=== PATIENT | male | born 1985 | race Caucasian/White ===

== ENCOUNTER 2020-04-20 10:23 | Emergency (ER) | payer SELFPAY ==
[~2020-04-20] VITALS: Ht 175.3 cm; Wt 81.6 kg
[2020-04-20 10:25] VITALS: BP 145/105
--- NOTE | 2020-04-20 10:34 | NUR ---
SEEN AND EXAMINED BY .
[2020-04-20 10:56] LABS: BASOPHILS # (AUTO) 0.1 /CMM (0.0-0.2); BASOPHILS % (AUTO) 1.2 % (0.0-2.0); EOSINOPHILS % (AUTO) 2.5 % (0.0-6.0); HEMATOCRIT 43 % (39-51); HEMOGLOBIN 14.2 g/dL (13.5-17.5); LYMPHOCYTES # (AUTO) 1.5 /CMM (0.8-4.8); LYMPHOCYTES % (AUTO) 19.1 % (20.0-44.0); MEAN CORPUSCULAR HGB CONC 33 g/dl (31.0-36.0); MEAN CORPUSCULAR VOLUME 97 fL (80-96); MONOCYTES # (AUTO) 0.6 /CMM (0.1-1.30); NEUTROPHILS # (AUTO) 5.4 /CMM (1.8-8.9); NEUTROPHILS % (AUTO) 69.2 % (43.0-81.0); PLATELET COUNT (AUTO) 195 /CMM (150-450); RED BLOOD CELL COUNT(AUTO) 4.41 MIL/uL (4.5-6.0); WHITE BLOOD COUNT (AUTO) 7.8 K/uL (4.3-11.0)
[2020-04-20 11:02] LABS: CALCIUM, SERUM 6.3 mg/dL (8.5-10.1); CREATININE 0.9 mg/dL (0.6-1.3)
[2020-04-20 11:08] LABS: ALBUMIN 3.2 g/dL (3.4-5.0); BILIRUBIN,DIRECT 0.1 mg/dL (0.0-0.2); BILIRUBIN,TOTAL 0.3 mg/dL (0.2-1.0); TOTAL PROTEIN, SERUM 6.8 g/dL (6.4-8.2)
--- NOTE | 2020-04-20 11:55 | NUR ---
Patient given written and verbal discharge instructions. Patient verbalizes understanding of instructions. Patient is ambulatory with steady gait. Refuses offer of group home placement. Patient given list of available shelters in surrounding area.
== END 2020-04-20 12:00 | disposition home or self-care (01) ==
LOC: ER 10:26
DX: R10.13 Epigastric pain (principal); R11.0 Nausea; G40.909 Epilepsy, unspecified, not intractable, without status epilepticus; F17.200 Nicotine dependence, unspecified, uncomplicated; Z59.0 Homelessness
CPT/HCPCS: 36415; 80048-TC; 80076-TC; 83690-TC; 85025-TC

== ENCOUNTER 2021-03-30 20:29 | Inpatient (IN) | payer MEDICAID ==
[~2021-03-30] VITALS: Ht 175.3 cm; Wt 68.5 kg
--- NOTE | 2021-03-30 20:55 | NUR ---
PT BIBRA FROM URGENT CARE C/O LOW CALCIUM OF 3.2 GIVEN 1G OF CALCIUM IV BY [facility] THEN SENT TO [facility]. C/O WEAKNESS PT ALERT AND ORIENTED X3. AMBULATORY WITH NON LABORED BREATHING.
[2021-03-30] MEDS ORDERED: IV NS 0.9% 1,000 ML BAG IV ONE (21:00)
[2021-03-30 21:17] LABS: BASOPHILS # (AUTO) 0.1 K/uL (0.0-0.2); BASOPHILS % (AUTO) 1.4 % (0.0-2.0); EOSINOPHILS % (AUTO) 5.8 % (0.0-6.0); HEMATOCRIT 37 % (39-51); HEMOGLOBIN 12.4 g/dL (13.5-17.5); LYMPHOCYTES # (AUTO) 1.8 K/uL (0.8-4.8); LYMPHOCYTES % (AUTO) 28.4 % (20.0-44.0); MEAN CORPUSCULAR HGB CONC 34 g/dl (31.0-36.0); MEAN CORPUSCULAR VOLUME 97 fL (80-96); MONOCYTES # (AUTO) 0.7 K/uL (0.1-1.30); MONOCYTES % (AUTO) 11.2 % (2.0-12.0); NEUTROPHILS # (AUTO) 3.4 K/uL (1.8-8.9); NEUTROPHILS % (AUTO) 53.2 % (43.0-81.0); PLATELET COUNT (AUTO) 139 K/uL (150-450); WHITE BLOOD COUNT (AUTO) 6.3 K/uL (4.3-11.0)
--- NOTE | 2021-03-30 21:20 | NUR ---
URINE COLLECTED AND SENT TO LAB
[2021-03-30 21:59] LABS: POTASSIUM 3.9 mmol/L (3.5-5.1)
--- NOTE | 2021-03-30 22:02 | NUR ---
CALCIUM 6.0
[2021-03-30 22:08] LABS: ALBUMIN 3.3 g/dL (3.4-5.0); BILIRUBIN,DIRECT 0.1 mg/dL (0.0-0.2); BILIRUBIN,TOTAL 0.1 mg/dL (0.2-1.0); TOTAL PROTEIN, SERUM 6.2 g/dL (6.4-8.2)
--- NOTE | 2021-03-30 22:56 | NUR ---
COVID SWAB DONE AND SENT TO LAB.
[2021-03-31] MEDS ORDERED: ONDANSETRON HCL/PF 4 MG/2 ML VIAL IVP PRN
[2021-03-31] MEDS ORDERED: MAGNESIUM HYDROXIDE 30 ML UDC PO PRN
[2021-03-31] MEDS ORDERED: IV D5/0.45 NACL 1,000 ML IV PRN
[2021-03-31] MEDS ORDERED: ACETAMINOPHEN 325 MG TABLET PO PRN
[2021-03-31] MEDS ORDERED: MAG HYDROX/AL HYDROX/SIMETH 30 ML UDC PO PRN
[2021-03-31] MEDS ORDERED: Z GUARD REMEDY 2 OZ OINT TP PRN
--- NOTE | 2021-03-31 03:49 | NUR ---
pt resting comfortably no complaints at this time
[2021-03-31] MEDS: IV D5/0.45 NACL 1,000 ML IV PRN ×2 (04:03→09:24)
[2021-03-31 05:58] LABS: BASOPHILS # (AUTO) 0.1 K/uL (0.0-0.2); BASOPHILS % (AUTO) 1.3 % (0.0-2.0); EOSINOPHILS % (AUTO) 5.3 % (0.0-6.0); HEMATOCRIT 39 % (39-51); HEMOGLOBIN 13.1 g/dL (13.5-17.5); LYMPHOCYTES # (AUTO) 1.7 K/uL (0.8-4.8); LYMPHOCYTES % (AUTO) 29.8 % (20.0-44.0); MEAN CORPUSCULAR HGB CONC 33 g/dl (31.0-36.0); MEAN CORPUSCULAR VOLUME 98 fL (80-96); MONOCYTES # (AUTO) 0.7 K/uL (0.1-1.30); MONOCYTES % (AUTO) 12.7 % (2.0-12.0); NEUTROPHILS # (AUTO) 2.9 K/uL (1.8-8.9); NEUTROPHILS % (AUTO) 50.9 % (43.0-81.0); PLATELET COUNT (AUTO) 143 K/uL (150-450); RED BLOOD CELL COUNT(AUTO) 4.01 MIL/uL (4.5-6.0); WHITE BLOOD COUNT (AUTO) 5.7 K/uL (4.3-11.0)
[2021-03-31 06:14] LABS: ALBUMIN 2.9 g/dL (3.4-5.0); BILIRUBIN,TOTAL 0.2 mg/dL (0.2-1.0); CREATININE 0.9 mg/dL (0.6-1.3); MAGNESIUM 1.8 mg/dL (1.8-2.4); PHOSPHORUS 5.3 mg/dL (2.5-4.9); POTASSIUM 4.2 mmol/L (3.5-5.1); TOTAL PROTEIN, SERUM 5.8 g/dL (6.4-8.2)
[2021-03-31 06:21] LABS: CALCIUM, SERUM 5.5 mg/dL (8.5-10.1)
[2021-03-31 06:25] LABS: THYROID STIMULATING HORMONE 1.769 uIU/mL (0.358-3.74)
--- NOTE | 2021-03-31 08:05 | NUR ---
THE PATIENT IS HAVING BREAKFAST. TOLERATES PROVIDED FOOD WELL.
--- NOTE | 2021-03-31 08:34 | NUR ---
THE PATIENT IS RECEIVED IN BED # 15. THE PATIENT IS SLEEPING. RESPONSIVE TO VERBAL STIMULI. RESPIRATION REGULAR AND UNLABORED. WILL CONTINUE TO MONITOR THE PATIENT.
[2021-03-31] MEDS ORDERED: DIVALPROEX SODIUM 250 MG TABLET.DR PO SCH (09:00)
[2021-03-31] MEDS ORDERED: PANTOPRAZOLE 40 MG VIAL ONE (09:14)
[2021-03-31] MEDS ORDERED: DIVALPROEX SODIUM 250 MG TABLET.DR PO ONE (09:14)
[2021-03-31] MEDS: PANTOPRAZOLE 40 MG VIAL IV SCH (09:23)
[2021-03-31] MEDS ORDERED: CHOLECALCIFEROL 1,000 UNIT TABLET (VIT D3) PO SCH (11:30)
[2021-03-31] MEDS: FOLIC ACID 1 MG TABLET PO SCH (11:44)
[2021-03-31] MEDS ORDERED: CHOLECALCIFEROL 1,000 UNIT TABLET (VIT D3) ONE (11:45)
[2021-03-31] MEDS ORDERED: FOLIC ACID 1 MG TABLET ONE (11:46)
--- NOTE | 2021-03-31 13:51 | NUR ---
bed 328-1 per nursing supervisor agricultural education
--- NOTE | 2021-03-31 14:01 | NUR ---
REPORT GIVEN TO ЮЛИЯ BECKHAM FOR [facility]O
--- NOTE | 2021-03-31 14:20 | NUR ---
RN ADMITTING NOTES PT TRANSPORTED TO UNIT BY DIANE AT THIS TIME. RECEIVED REPORT FROM BHAVANI HAMILTON @ ED. PT AOX4. NO SOB NOTED, NO S/O OF ANY ACUTE DISTRESS NOTED, NO C/O PAIN AT THIS TIME. SKIN IS INTACT AND WARM TO TOUCH, ACTIVE BOWEL SOUNDS AUSCULTATED THROUGHOUT, LUNGS ARE CLEAR TO AUSCULTATION. PULSES PRESENT BILATERALLY, CAPILLARY REFILL <3SECONDS. IV ACCESS NOTED IN RAC G#20, INTACT, PATENT AND FLUSHING WELL. BELONGINGS ACCOUNTED FOR AND KEPT AT BEDSIDE PER PATIENT REQUEST. PATIENT NOTED WITH MEDICAL MARIJUANA, GIVE TO CJ CHARGE NURSE AND KEPT IN UNIT SAVE. PT ORIENTED TO ROOM AND INSTRUCTED TO CALL FOR ASSISTANTS. PT VERBALIZE UNDERSTANDING. ASPIRATION AND SAFETY PRECAUTIONS IN PLACE AND MAINTAINED AT ALL TIMES. BED IN LOWEST LOCKED POSITION, HOB ELEVATED, SIDE RAILS UP X2, CALL LIGHT AND TABLE WITHIN REACH. WILL CONTINUE TO MONITOR
--- NOTE | 2021-03-31 14:20 | NUR ---
THE PATIENT IS TRANSFERED TO ROOM 328-1 IN STABLE CONDITION AND PER ACLS POLICY.
[2021-03-31 16:00] VITALS: BP 124/74
[2021-03-31] MEDS ORDERED: Magnesium 1GM/D5W 100ML PREMIX 100 ML IV SCH (16:00)
[2021-03-31] MEDS: DIVALPROEX SODIUM 250 MG TABLET.DR PO SCH (17:53)
--- NOTE | 2021-03-31 18:41 | NUR ---
RN CLOSING NOTES PATIENT AWAKE IN BED AT THIS TIME.PATIENT REMAINED STABLE THROUGHOUT SHIFT. ALL CARE, NEEDS, MEDICATIONS AND TREATMENT ADMINISTERED ANTICIPATED PER ORDER. PATIENT KEPT CLEAN AND DRY. ASPIRATION AND SAFETY PRECAUTIONS IN PLACE AND MAINTAINED AT ALL TIMES. BED IN LOWEST LOCKED POSITION, HOB ELEVATED, SIDE RAILS UP X2, CALL LIGHT AND TABLE WITHIN REACH, WILL ENDORSE TO INDIAN NANNY NURSE FOR COCO
[2021-03-31 20:00] VITALS: BP 130/80
[2021-04-01] VITALS: BP 125/86
[2021-04-01 04:00] VITALS: BP 133/75
--- NOTE | 2021-04-01 06:24 | NUR ---
PVC LOADER NOTES AWAKE & RESPONSIVE. NOT IN ANY DISTRESS. NO SOB NOTED. DENIES ANY PAIN OR DISCOMFORT AT THIS TIME. ON TELE SR @ 76 WITH IV-HL PATENT & INTACT. AM CARE DONE. MONITORED ACCORDINGLY. CALL LIGHT WITHIN REACH. BED IN LOWEST POSITION. SR UP X 2 FOR SAFETY. WILL ENDORSE TO NEXT SHIFT.
--- NOTE | 2021-04-01 07:20 | NUR ---
RN OPENING NOTE RECEIVED PATIENT SLEEPING IN BED. EASILY AROUSED. A/O X4. ON ROOM AIR, TOLERATING WELL. NO SOB NOTED. IN NO APPARENT DISTRESS. DENIES ANY PAIN OR DISCOMFORT AT THIS TIME. IV ACCESS ON R AC #20 G, INTACT, D5 1/2 NS CURRENTLY RUNNING X 125 ML/HR. SAFETY MEASURES MAINTAINED. BED IN LOWEST POSITION, BRAKES LOCKED. SIDE RAILS UP X2. CALL LIGHT WITHIN REACH. WILL CONTINUE PLAN OF CARE.
[2021-04-01 07:55] LABS: BASOPHILS # (AUTO) 0.1 K/uL (0.0-0.2); BASOPHILS % (AUTO) 1.1 % (0.0-2.0); EOSINOPHILS % (AUTO) 5.8 % (0.0-6.0); HEMATOCRIT 42 % (39-51); HEMOGLOBIN 14.2 g/dL (13.5-17.5); LYMPHOCYTES # (AUTO) 1.4 K/uL (0.8-4.8); LYMPHOCYTES % (AUTO) 23.7 % (20.0-44.0); MEAN CORPUSCULAR HGB CONC 34 g/dl (31.0-36.0); MEAN CORPUSCULAR VOLUME 97 fL (80-96); MONOCYTES # (AUTO) 0.5 K/uL (0.1-1.30); MONOCYTES % (AUTO) 8.5 % (2.0-12.0); NEUTROPHILS # (AUTO) 3.5 K/uL (1.8-8.9); NEUTROPHILS % (AUTO) 60.9 % (43.0-81.0); PLATELET COUNT (AUTO) 140 K/uL (150-450); RED BLOOD CELL COUNT(AUTO) 4.37 MIL/uL (4.5-6.0); WHITE BLOOD COUNT (AUTO) 5.7 K/uL (4.3-11.0)
[2021-04-01 08:00] VITALS: BP 137/79
[2021-04-01] MEDS: CHOLECALCIFEROL 1,000 UNIT TABLET (VIT D3) PO SCH ×3 (08:00→08:59)
[2021-04-01 08:01] LABS: CREATININE 0.8 mg/dL (0.6-1.3)
[2021-04-01 08:04] LABS: CALCIUM, SERUM 5.9 mg/dL (8.5-10.1)
[2021-04-01] MEDS: DIVALPROEX SODIUM 250 MG TABLET.DR PO SCH ×2 (08:27→16:13)
[2021-04-01] MEDS: FOLIC ACID 1 MG TABLET PO SCH (08:27)
[2021-04-01] MEDS: PANTOPRAZOLE 40 MG VIAL IV SCH (08:28)
--- NOTE | 2021-04-01 08:50 | NUR ---
RN NOTE CASE FROM LAB CALLED REGARDING CRITICAL VALUE OF CA 5.9. DOMINGO MILLER NP IS MADE AWARE.
[2021-04-01] MEDS ORDERED: CALCIUM CARB 250MG /VITAMIN D 1 UDTAB PO SCH (10:00)
[2021-04-01 16:00] VITALS: BP 114/61
[2021-04-01] MEDS: IV D5/0.45 NACL 1,000 ML IV PRN (16:13)
--- NOTE | 2021-04-01 18:13 | NUR ---
RN CLOSING NOTES PATIENT IN BED, AWAKE. A/O X 4. ABLE TO MAKE NEEDS KNOWN. ON RA, TOLERATING WELL. NO SOB NOTED. NO S/SX OF DISTRESS NOTED. DENIES PAIN AT THIS TIME. IV ACCESS ON RAC #20G, D5 1/2 NS RUNNING AT 50 ML/HR. IV ACCESS INTACT AND PATENT. SAFETY PRECAUTIONS IN PLACE AND MAINTAINED AT ALL TIMES: BED IN LOWEST LOCKED POSITION, HOB ELEVATED, SIDE RAILS UP X 2, CALL LIGHT AND TABLE WITHIN REACH, WILL ENDORSE TO FISHING MANAGER NURSE FOR [facility] Addendum: 04/01/21 at 1902 by VANDANA CORBIN RN PATIENT REMOVED IV ACCESS ON RAC. INSERTED NEW IV ACCESS ON L HAND #20G, INTACT AND PATENT.
[2021-04-01 20:34] VITALS: BP 180/98
--- NOTE | 2021-04-02 02:10 | NUR ---
MS RN NOTES PT AGITATED, SCREAMING AND YELLING AT THE HALLWAY. PT WANTS TO HAVE IV FLUIDS BUT PT REFUSING TO HAVE IV-HL STARTED AT THIS TIME. PT STATES "I WANT A REAL NURSE. I WANT MY NURSE FROM YESTERDAY." NOTIFIED [facility] FOR [facility]. WITH NEW ORDERS MADE. ORDERS NOTED AND CARRIED OUT. WILL CONTINUE TO MONITOR.
[2021-04-02] MEDS ORDERED: LORAZEPAM INJ 2 MG/ML VIAL IM PRN (02:30)
--- NOTE | 2021-04-02 06:07 | NUR ---
MS RN NOTES AWAKE & RESPONSIVE. NOT IN ANY DISTRESS. NO SOB NOTED. DENIES ANY PAIN OR DISCOMFORT AT THIS TIME. MONITORED ACCORDINGLY. CALL LIGHT WITHIN REACH. BED IN LOWEST POSITION. SR UP X 2 WITH BED ALARM ON FOR SAFETY. WILL ENDORSE TO NEXT SHIFT.
[2021-04-02 06:58] LABS: BASOPHILS # (AUTO) 0.1 K/uL (0.0-0.2); BASOPHILS % (AUTO) 0.8 % (0.0-2.0); EOSINOPHILS % (AUTO) 5.3 % (0.0-6.0); HEMATOCRIT 44 % (39-51); HEMOGLOBIN 14.6 g/dL (13.5-17.5); LYMPHOCYTES # (AUTO) 1.1 K/uL (0.8-4.8); LYMPHOCYTES % (AUTO) 16.4 % (20.0-44.0); MEAN CORPUSCULAR HGB CONC 33 g/dl (31.0-36.0); MEAN CORPUSCULAR VOLUME 97 fL (80-96); MONOCYTES # (AUTO) 0.5 K/uL (0.1-1.30); MONOCYTES % (AUTO) 7.8 % (2.0-12.0); NEUTROPHILS # (AUTO) 4.7 K/uL (1.8-8.9); NEUTROPHILS % (AUTO) 69.7 % (43.0-81.0); PLATELET COUNT (AUTO) 156 K/uL (150-450); RED BLOOD CELL COUNT(AUTO) 4.55 MIL/uL (4.5-6.0); WHITE BLOOD COUNT (AUTO) 6.8 K/uL (4.3-11.0)
[2021-04-02] MEDS ORDERED: PANTOPRAZOLE 40 MG TABLET.DR PO SCH (07:30)
[2021-04-02 07:37] LABS: ALBUMIN 3.4 g/dL (3.4-5.0); BILIRUBIN,TOTAL 0.5 mg/dL (0.2-1.0); CREATININE 0.8 mg/dL (0.6-1.3); MAGNESIUM 1.9 mg/dL (1.8-2.4); PHOSPHORUS 5.2 mg/dL (2.5-4.9); TOTAL PROTEIN, SERUM 6.8 g/dL (6.4-8.2)
--- NOTE | 2021-04-02 07:46 | NUR ---
MS RN OPENING NOTE RECEIVED PT AWAKE IN BED. A/O X3. PT IS STABLE ON ROOM AIR WITH NO SOB OR S/S OF RESPIRATORY DISTRESS NOTED. PT HAS NO C/O PAIN OR DISCOMFORT AT THIS TIME. PT CONTINUES TO REFUSE IV ACCESS. EDUCATED PT ON RISKS AND BENEFITS OF REFUSING IV ACCESS. PT VERBALIZED UNDERSTANDING. SAFETY PRECAUTIONS MAINTAINED. BED IN LOWEST LOCKED POSITION, HOB ELEVATED, SIDE RAILS UP X2. CALL LIGHT AND TABLE WITHIN REACH. WILL CONTINUE TO MONITOR.
[2021-04-02] MEDS ORDERED: OLANZAPINE 10 MG VIAL IM ONE (08:00)
[2021-04-02 08:05] LABS: CALCIUM, SERUM 6.4 mg/dL (8.5-10.1)
--- NOTE | 2021-04-02 08:20 | NUR ---
RN NOTE - AMA PT SIGNED AMA AT THIS TIME AND STATED THAT HE "WANTED TO LEAVE THE HOSPITAL NOW." EDUCATED PT ON RISKS AND BENEFITS OF LEAVING AMA AND PT VERBALIZED UNDERSTANDING. PT STATED THAT HE DID NOT NEED TO TALK TO THE DR AT THIS TIME. NOZZLE CEMENT SPRAYER HELPER ANGELA AND CHARGE NURSE DONELL MADE AWARE. PT HAS NO IV ACCESS AT THIS TIME. ID BAND REMOVED. PT ESCORTED TO LOBBY WITH PERSONAL BELONGINGS, ACCOMPANIED BY 2 SECURITY GUARDS.
--- NOTE | 2021-04-02 08:27 | NUR ---
SS consult requested for homelessness. SS will follow up at a later time. Addendum: 04/02/21 at 0830 by PHILIPPE RAZO Per Sriram miles AMA.
== END 2021-04-02 08:20 | disposition left against medical advice (07) | DRG 424 ==
LOC: ER 20:29 → TRANSITION 03-31 03:54 → TELE 03-31 13:51 → MED 04-01 10:36
PROVIDERS: ADMIT Registered Nurse; ATTEND Nurse Practitioner Acute Care
DX: E20.9 Hypoparathyroidism, unspecified (principal); G93.49 Other encephalopathy; E87.0 Hyperosmolality and hypernatremia; E86.0 Dehydration; E86.1 Hypovolemia; G40.909 Epilepsy, unspecified, not intractable, without status epilepticus; Z59.00 Homelessness unspecified; Z91.14 Patient's other noncompliance with medication regimen; F19.10 Other psychoactive substance abuse, uncomplicated; D53.9 Nutritional anemia, unspecified; Z79.899 Other long term (current) drug therapy
CPT/HCPCS: 36415; 70450-TC; 71045-TC; 80048-TC; 80053-TC; 80061-TC; 80076-TC; 80164-TC; 82330; 83605-TC; 83735-TC; 83970; 84100-TC; 84443-TC; 85025-TC; 85730-TC; 87081-TC; 97112-TC; 97116-TC; 97530-TC; C9113; C9803; G0378; J2060; J3475; J3490; J7030